=== PATIENT | male | born 1935 | race Caucasian/White ===

== ENCOUNTER 2016-07-13 17:40 | Emergency (ER) | payer MEDICARE ==
[~2016-07-13] VITALS: Ht 160 cm; Wt 75.3 kg
--- NOTE | 2016-07-13 17:42 | NUR ---
AAOX3, BIB C/O RIGHT HIP PAIN S/P SLIPPED AND FELL THIS AFTERNOON, -KO. PATIENT HAD AN XRAY HIDE SPLITTER, NEGATIVE FROM ANY FRACTURE. PATIENT IS REQUESTING TO HAVE AN MRI. SKIN IS WARM AND DRY. RESP IS EVEN AND UNLABORED WITH NAD NOTED. AWAITING MD FOR EVAL. [facility] WNL.
--- NOTE | 2016-07-13 17:55 | NUR ---
DR LIVE AT BS FOR EVAL.
--- NOTE | 2016-07-13 18:31 | NUR ---
PT TAKEN TO CT.
[2016-07-13] MEDS ORDERED: MORPHINE SULFATE INJ 2 MG/ML DISP.SYRIN IV ONE (19:00)
[2016-07-13] MEDS ORDERED: ONDANSETRON HCL/PF 4 MG/2 ML VIAL IVP ONE (19:00)
[2016-07-13] MEDS ORDERED: ONDANSETRON HCL/PF 4 MG/2 ML VIAL ONE (19:05)
[2016-07-13] MEDS ORDERED: MORPHINE SULFATE INJ 4 MG/ML DISP.SYRIN ONE (19:05)
--- NOTE | 2016-07-13 19:10 | NUR ---
Received patient in bed, aaox3, no s/s of acute distress. Respiration even and unlabored. Tele monitoring on. Comfort measures rendered. at bedside.
[2016-07-13 19:16] LABS: EOSINOPHILS % (AUTO) 0.1 % (0.0-6.0); HEMATOCRIT 38 % (39-51); HEMOGLOBIN 12.4 g/dL (13.5-17.5); LYMPHOCYTES % (AUTO) 9.7 % (20.0-44.0); MEAN CORPUSCULAR HEMOGLOBIN 29 PG (26.0-33.0); MEAN CORPUSCULAR HGB CONC 33 g/dl (31.0-36.0); MEAN CORPUSCULAR VOLUME 89 fL (80-96); MONOCYTES # (AUTO) 0.7 /CMM (0.1-1.30); MONOCYTES % (AUTO) 7.2 % (2.0-12.0); NEUTROPHILS # (AUTO) 8.5 /CMM (1.8-8.9); PLATELET COUNT (AUTO) 249 /CMM (150-450); RDW COEFFICIENT OF VARIATION 15.4 (11.5-15.0); RED BLOOD CELL COUNT(AUTO) 4.26 MIL/uL (4.5-6.0); WHITE BLOOD COUNT (AUTO) 10.2 K/uL (4.3-11.0)
--- NOTE | 2016-07-13 19:20 | NUR ---
Patient to ct.
--- NOTE | 2016-07-13 19:32 | NUR ---
back from ct.
[2016-07-13 19:41] LABS: CALCIUM, SERUM 9.3 mg/dL (8.5-10.1); CREATININE 1.3 mg/dL (0.6-1.3); POTASSIUM 4.4 mmol/L (3.5-5.1)
[2016-07-13 19:45] LABS: INR 2.51 (0.87-1.13); PROTHROMBIN TIME 28.5 SECS (9.5-12.7)
--- NOTE | 2016-07-13 19:51 | NUR ---
Dr Restrepo at bedside.
--- NOTE | 2016-07-13 20:00 | NUR ---
CALLED [facility] FOR TRANSPORT BACK HOME, ETA 30 MIN
--- NOTE | 2016-07-13 20:36 | NUR ---
Patient discharged to home in stable condition. Written and verbal after care instructions given. Patient and verbalizes understanding of instruction. Endorsed care to Holly from [facility] for marychuy. [facility] Walker was provided per Dr Restrepo's orders.
[2016-07-13 20:53] VITALS: BP 159/72
== END 2016-07-13 20:40 | disposition home or self-care (01) ==
LOC: ER 17:43
DX: S32.511A Fracture of superior rim of right pubis, initial encounter for closed fracture (principal); E78.00 Pure hypercholesterolemia, unspecified; I10 Essential (primary) hypertension; M19.90 Unspecified osteoarthritis, unspecified site; R79.1 Abnormal coagulation profile; Z95.1 Presence of aortocoronary bypass graft; Z95.2 Presence of prosthetic heart valve; W01.0XXA Fall on same level from slipping, tripping and stumbling without subsequent striking against object, initial encounter; Y93.89 Activity, other specified; Y92.89 Other specified places as the place of occurrence of the external cause; Y99.9 Unspecified external cause status
CPT/HCPCS: 36415; 72192; 73700; 80048; 85025; 85730; 96374; 96375; 99285; A4606; J2270; J2405; Z7610

== ENCOUNTER 2017-03-19 10:36 | Emergency (ER) | payer MEDICARE ==
[~2017-03-19] VITALS: Ht 157.5 cm; Wt 76.2 kg
[2017-03-19 10:50] VITALS: BP 123/65
[2017-03-19 11:18] LABS: INR 2.14 (0.87-1.13); PROTHROMBIN TIME 22.3 SECS (9.5-12.7)
== END 2017-03-19 11:45 | disposition home or self-care (01) ==
LOC: ER 10:38
DX: Z51.81 Encounter for therapeutic drug level monitoring (principal); I10 Essential (primary) hypertension; Z95.2 Presence of prosthetic heart valve; E78.00 Pure hypercholesterolemia, unspecified; Z95.1 Presence of aortocoronary bypass graft; Z98.890 Other specified postprocedural states; Z79.01 Long term (current) use of anticoagulants
CPT/HCPCS: 36415; 85730; 99283; A4606; Z7610